=== PATIENT | male | born 1955 ===

== ENCOUNTER → 2025-04-16 | Outpatient (CLI) | payer MEDICARE ==
--- NOTE | 2025-04-16 10:54 | MR ---
INDICATION: Patient age:Male; 69 years old; Reason for study: S06.9XAA intracranial injury with loss of consciousness; [facility]. COMPARISON: None. TECHNIQUE: Multi planar, multi sequence imaging was performed through the without intravenous contras t. FINDINGS: The bo-white junctions, ventricular system, basal cisterns appear unremarkable. Age-appropriate cer ebral parenchymal volume. Diffusion-weighted imaging shows no evidence of restricted diffusion to sug gest acute/subacute infarct. Intracranial arterial flow voids are maintained. Midline structures show no abnormality. No FLAIR signal abnormalities. The susceptibility weighted images demonstrate multip le foci of blooming artifact within the right high parietal extra-axial space from prior microhemorrh age. No evidence for subdural hematoma or mass effect. No blooming artifact identified within the cer ebral parenchyma. The bone marrow signal is within normal limits. The globes are unremarkable. Mucosal thickening of t he left ethmoid sinus. IMPRESSION: 1. No evidence of intracranial mass or acute/subacute infarct. 2. Right high parietal extra-axial blooming artifact representing prior microhemorrhage. No evidence for subdural hematoma or mass effect. [facility], , 04/16/2025 10:51 AM
== END | disposition home or self-care (01) ==
LOC: RADMRIMAIN 09:03
PROVIDERS: ATTEND Emergency Medicine
DX: S06.9XAA Unspecified intracranial injury with loss of consciousness status unknown, initial encounter (principal)
CPT/HCPCS: 70551